=== PATIENT | female | born 1945 | race Caucasian/White ===

== ENCOUNTER 2017-09-28 07:57 | Day surgery (SDC) | payer MEDICARE, OTHER ==
[~2017-09-28 07:57] MED LIST: Midazolam 1 MG/ML 2 ML SDV ONE; fentaNYL 100 MCG/2 ML SDV ONE
[2017-09-28] MEDS ORDERED: Midazolam 1 MG/ML 2 ML SDV IV ONE ×5 (07:58→09:13)
[2017-09-28] MEDS ORDERED: fentaNYL 100 MCG/2 ML SDV IV ONE ×3 (07:58→09:10)
[2017-09-28] MEDS ORDERED: Lactated Ringers 1,000 ML IV SCH (08:45)
[2017-09-28] MEDS ORDERED: Dextrose 5%-0.45% NaCl 1,000 ML IV SCH (09:00)
--- NOTE | 2017-09-28 11:41 | OR ---
DATE: 09/28/2017 PREOPERATIVE DIAGNOSIS: Change in bowel function. POSTOPERATIVE DIAGNOSIS: Change in bowel function. PROCEDURES: Total colonoscopy with snare excision of small rectosigmoid junction polyp. ANESTHESIA: Conscious sedation with IV Versed and fentanyl. SPECIMEN: Polyp. OPERATIVE FINDINGS: Normal colonoscopy except for one small 2 mm rectosigmoid junction polyp. RECOMMENDATION: Followup screening colonoscopy in 5 years. However, the patient will be 75 and will need to evaluate need for colonoscopy and medical fitness at that age. INDICATION FOR PROCEDURE: This 71-year-old female has a change in bowel function. DESCRIPTION OF PROCEDURE: After adequate preparation, a colonoscope was inserted into the rectum. This was easily passed all the way to the cecum. Confirmation of the cecum was made by visualization of the ileocecal valve on palpation in the right lower quadrant. The bowel prep was good. A photograph of the ileocecal valve was taken. On withdrawal of the scope, the only abnormality noted was a small 2-mm polyp right at the rectosigmoid junction. A snare was placed around the polyp, and this was clipped off and retrieved for pathological evaluation. No other abnormalities were noted. Air was suctioned from the colon, and the scope was removed. [facility] /[id number]
== END 2017-09-28 10:55 | disposition home or self-care (01) ==
LOC: DL.ENDO 07:57
PROVIDERS: ATTEND Surgery
DX: R19.4 Change in bowel habit (principal); D12.5 Benign neoplasm of sigmoid colon; Z88.0 Allergy status to penicillin; Z88.8 Allergy status to other drugs, medicaments and biological substances; Z91.013 Allergy to seafood; Z91.041 Radiographic dye allergy status
CPT/HCPCS: 88305; J2250; J3010; J7120